=== PATIENT | female | born 1985 | race African-American/Black ===

== ENCOUNTER 2023-08-25 20:25 | Emergency (ER) | payer BC, OTHER ==
[~2023-08-25] VITALS: Ht 157.5 cm; Wt 85.4 kg
[2023-08-25 20:36] VITALS: O2SAT 99
[2023-08-25 22:24] VITALS: BP 162/89; PULSE 98; RESP 20; TEMP 98.7
[2023-08-25] MEDS ORDERED: IBUP-2028 MT (22:46)
== END 2023-08-25 23:02 | disposition home or self-care (01) ==
LOC: ER 20:25
DX: G44.209 Tension-type headache, unspecified, not intractable (principal)
CPT/HCPCS: 99282